=== PATIENT | male | born 1950 | race Caucasian/White ===

== ENCOUNTER 2023-04-26 18:15 | Emergency (ER) | payer SELFPAY ==
[~2023-04-26] VITALS: Ht 170.2 cm; Wt 59.0 kg
[2023-04-26 18:22] VITALS: TEMP 98.4; O2SAT 97
[2023-04-26] MEDS ORDERED: KETOROLAC 30MG/ML VIAL IV STA (18:39)
[2023-04-26] MEDS ORDERED: ONDANSETRON HCL 4MG/2ML INJ IV STA (18:39)
[2023-04-26 18:47] LABS: CLARITY URINE CLEAR (CLEAR); COLOR URINE YELLOW (YELLOW); GLUCOSE URINE NEGATIVE (NEGATIVE); KETONES URINE TRACE (NEGATIVE); LEUKOCYTE ESTERASE URINE NEGATIVE (NEGATIVE); NITRITE URINE NEGATIVE (NEGATIVE); OCCULT BLOOD URINE TRACE (NEGATIVE); PH URINE 5.5 (4.5-8.0); PROTEIN URINE TRACE (NEGATIVE); SPECIFIC GRAVITY URINE 1.025 (1.005-1.030)
[2023-04-26 19:04] LABS: BACTERIA URINE NONE SEEN; RBC URINE 0-2 /hpf (0-2); SQUAMOUS EPITHELIAL CELL URINE 1+ /lpf (RARE/1+); WBC URINE 0-2 /hpf (0-2)
[2023-04-26 19:17] LABS: BASOPHILS % 0.5 % (0.0-2.0); DIFFERENTIAL COMMENT 0; EOSINOPHILS % 1.9 % (0.0-5.0); HEMOGLOBIN. 16.3 g/dL (14.0-18.0); LYMPHOCYTES % 37.8 % (20.0-50.0); MEAN CORPUSCULAR HEMOGLOBIN 29.8 pg (28.0-32.0); MEAN CORPUSCULAR HGB CONC 34.6 g/dL (31.0-37.0); MEAN PLATELET VOLUME 8.6 fl (7.4-10.4); MONOCYTES % 6.4 % (2.0-8.0); NEUTROPHILS % 53.4 % (40.0-76.0); PLATELET 343 x1000/uL (130-400); RED BLOOD CELL COUNT 5.46 mill/uL (4.7-6.1); RED CELL DISTRIBUTION WIDTH 14.2 % (11.6-14.6); WHITE BLOOD COUNT 7.4 x1000/uL (4.5-11.0)
[2023-04-26 19:37] LABS: ALANINE AMINOTRANSFERASE < 7 IU/L (10-49); ALBUMIN 5.2 g/dL (3.2-4.8); ASPARTATE AMINOTRANSFERASE 20 IU/L (<34); BILIRUBIN TOTAL 0.5 mg/dL (0.1-1.0); CALCIUM 9.5 mg/dL (8.7-10.4); CARBON DIOXIDE 28 mEq/L (21-32); CHLORIDE 102 mEq/L (98-107); GLUCOSE 106 mg/dL (70-105); POTASSIUM 3.9 mEq/L (3.5-5.1); PROTEIN TOTAL 9.1 g/dL (6.0-8.3); SODIUM 137 mEq/L (136-145); UREA NITROGEN BLOOD 19 mg/dL (9-23)
[2023-04-26] MEDS: SODIUM CHLORIDE 0.9% 1,000 ML IV ONE (20:22)
[2023-04-26 20:24] VITALS: BP 144/86; PULSE 94; RESP 12
[2023-04-26] MEDS: ONDANSETRON HCL 4MG/2ML INJ IV NR (20:24)
[2023-04-26] MEDS: KETOROLAC 30MG/ML VIAL IV NR (20:24)
[2023-04-26] MEDS ORDERED: ONDA4TAB11 PO (22:29)
[2023-04-26] MEDS ORDERED: IBUP-2029 MT (22:29)
[2023-04-26] MEDS ORDERED: HYDR-4001 MT (22:29)
== END 2023-04-26 23:29 | disposition home or self-care (01) ==
LOC: ER 18:15 → CANBEDREQ 04-29 00:24
DX: K86.3 Pseudocyst of pancreas (principal); Z98.890 Other specified postprocedural states
CPT/HCPCS: 99285; 74176; 96374; 96361; 96375; 80053; 81003; 83690; 85025; 36415; 93005; J1885; J2405; J7030